=== PATIENT | female | born 1980 | race Two or more races ===

== ENCOUNTER 2022-07-27 12:01 | Emergency (ER) | payer MEDICAID, SELFPAY ==
[2022-07-27 12:57] VITALS: BP 143/88; PULSE 90; RESP 20; TEMP 36.4; O2SAT 98; BMI 36.4
--- NOTE | 2022-07-27 12:57 | ED.SKABFB ---
HPI - Skin/Abscess/Foreign Bdy General Chief complaint: Skin/Abscess/Foreign Body Stated complaint: rash on arm Time Seen by Provider: 07/27/22 12:57 Source: patient Mode of arrival: ambulatory Limitations: language barrier ([place]an-speaking pediatrician/medical doctor utilized) History of Present Illness HPI narrative: Patient is a 41-year-old female who presents emergency department for evaluation of rash to the bilateral arms. Onset of symptoms was 8 weeks ago. She reports that to be very itchy. She has been using Benadryl cream which has been somewhat helpful. Denies any history of similar rash in the past. Denies fevers or chills. Denies any others in her home having similar rashes. Rash is not present to the hands. Related Data Previous Rx's Medication Instructions Recorded hydrocortisone 2.5 % topical cream 1 appl topical BID PRN rash #30 07/27/22 grams Allergies Allergy/AdvReac Type Severity Reaction Status Date / Time No Known Allergies Allergy Verified 07/27/22 13:02 Review of Systems Review of Systems: Skin: Positive rash as noted in HPI Yes all other systems are reviewed and are negative [facility] Past Medical History Attestation statement: The following information was validated with the patient. Physical Exam Vital Signs: Appearance: Alert.?Oriented to person, place and time. No acute distress.?Normal affect. Eyes: Pupils equal, round and reactive to light.? ENT: Pharynx normal.?? Neck: Normal inspection.? Neck supple.?? CVS: Heart sounds normal. Normal heart rate and rhythm.? Pulses normal.?? Respiratory: No respiratory distress.? Lung sounds clear to auscultation bilaterally?? Abdomen: Soft and non-tender. ?? Skin: Skin warm and dry.? Normal skin color.? Maculopapular rash to the bilateral upper arms, no swelling, no erythema, no warmth Extremities: No lower extremity edema.? Neuro: Moves all extremities spontaneously. Sensation intact bilaterally. Ambulates with normal steady gait. Medical Decision Making Medical Decision Making [facility] Narrative: Patient is a 41-year-old female who presents emergency department for evaluation of a rash. No reported past medical history. Appears to be be benign self-limiting condition, vital signs are stable, nontoxic. Rash appears consistent with a contact dermatitis, discussed with patient etiology is unknown at this time. At consistent with cellulitis. No recent antibiotic usage, or new medications. Provided with prescription for hydrocortisone cream, advised outpatient follow-up with primary care provider as needed for persistent symptoms. Prescription Management I considered prescription management with: Other (Topical steroid) Discharge Plan Discharge Clinical Impression: Contact dermatitis Patient Disposition: Home, Self-Care Instructions: Contact Dermatitis (ED) Additional Instructions: Be sure to clean the area twice daily with warm water and non scented soap. Apply the steroid cream as prescribed twice daily. Follow-up with your primary care provider for persistent symptoms. Return to emergency department any new or worsening symptoms or concerns. Prescriptions: New hydrocortisone 2.5 % cream 1 appl topical BID PRN (Reason: rash) Qty: 30 0RF Print Language: [place]an
== END 2022-07-27 13:48 | disposition home or self-care (01) ==
LOC: HO.ED 13:45
PROVIDERS: Emergency Provider Emergency Medicine
DX: L23.9 Allergic contact dermatitis, unspecified cause (principal)
CPT/HCPCS: 99282; 99283

== ENCOUNTER 2022-08-14 18:58 | Emergency (ER) | payer OTHER, SELFPAY ==
--- NOTE | 2022-08-14 19:38 | ED.NECK ---
HPI - Neck Pain/Injury General Chief Complaint: General Medical <RAPHAEL Nails - Last Filed: 08/14/22 20:14> Stated Complaint: neck pain/ sore throat <RAPHAEL Nails - Last Filed: 08/14/22 20:14> Time Seen by Provider: 08/14/22 23:58 <RAPHAEL Nails - Last Filed: 08/14/22 20:14> Source: patient <Jennifer Thomas MD - Last Filed: 08/15/22 00:20> Mode of arrival: ambulatory <Jennifer Thomas MD - Last Filed: 08/15/22 00:20> Limitations: no limitations <Jennifer Thomas MD - Last Filed: 08/15/22 00:20> History of Present Illness HPI Narrative: Patient comes in the emergency room complaining of 1 day of sore throat, bilateral ear pain, runny nose and left sided neck pain . Patient denies fever or chills, no neck stiffness , no headache. <Jennifer Thomas MD - Last Filed: 08/15/22 00:20> Related Data Home Medications: Previous Rx's Medication Instructions Recorded hydrocortisone 2.5 % topical cream 1 appl topical BID PRN rash #30 07/27/22 grams <RAPHAEL Nails - Last Filed: 08/14/22 20:14> Allergies/Adverse Reactions: Allergies Allergy/AdvReac Type Severity Reaction Status Date / Time No Known Allergies Allergy Verified 07/27/22 13:02 <RAPHAEL Nails - Last Filed: 08/14/22 20:14> Review of Systems Review of Systems: Constitutional : No Weight loss, No Fever, No Chills, No Night Sweats, No Fatigue, No Malaise ENT/Mouth : Complaining of bilateral ear discomfort, runny nose Eyes: No Eye Pain, No Swelling, No Redness, No Foreign Body, No Discharge, No Vision Changes Cardiovascular : No Chest Pain, No SOB, No Dyspnea on Exertion, No Orthopnea, No Edema, No Palpitations Respiratory : No Cough, No Sputum, No Wheezing, No Smoke Exposure, No Dyspnea Gastrointestinal : No Nausea, No Vomiting, No Diarrhea, No Constipation, No abdominal Pain, No Hematochezia, No Melena Genitourinary : no irregular bleeding, No Dysuria, No Urinary Frequency, No Hematuria, No Urinary Incontinence, No Urgency, No Flank Pain, No Urinary Flow Changes, No Hesitancy Musculoskeletal : No joint pain, No Myalgias, No Joint Swelling Skin : No Skin Lesions, No rash Neuro : No Weakness, No Numbness, No Paresthesias, No Loss of Consciousness, No Dizziness, No Headache Psych : No Anxiety/Panic, No Depression, No SI/HI/AH/VH, No Social Issues, Heme/Lymph: No Bruising, No Bleeding,No Lymphadenopathy Endocrine : No Polyuria, No Polydipsia, No Temperature Intolerance <Jennifer Thomas MD - Last Filed: 08/15/22 00:20> [facility] Social History Social History: Social History Advance Directives: No Advance Directives Information Provided: No <RAPHAEL Nails - Last Filed: 08/14/22 20:14> Physical Exam Vital Signs: Vital Signs: Last Vital Signs Temp 98.6 F 08/14/22 23:55 Pulse 85 08/14/22 23:55 Resp 17 08/14/22 23:55 BP 123/79 08/14/22 23:55 Pulse Ox 100 08/14/22 23:55 O2 Del Method 08/14/22 23:55 BMI result Body Mass Index 33.5 <RAPHAEL Nails - Last Filed: 08/14/22 20:14> Vital Signs: Last Vital Signs Temp 98.6 F 08/14/22 23:55 Pulse 85 08/14/22 23:55 Resp 17 08/14/22 23:55 BP 123/79 08/14/22 23:55 Pulse Ox 100 08/14/22 23:55 O2 Del Method 08/14/22 23:55 BMI result Body Mass Index 33.5 <Jennifer Thomas MD - Last Filed: 08/15/22 00:20> Const: Other: Appearance: Alert. Oriented X3. No acute distress. Eyes: Pupils equal, round and reactive to light. ENT: Mildly erythematous oropharynx, no exudates, no abscesses Neck: Normal inspection. Neck supple. No lymph nodes noted. No crepitus, no malodor range of motion, no C-spine tenderness, normal flexion and extension, no stiffness, no pain with movement. CVS: Normal heart rate and rhythm. Pulses normal. Normal S1 and S2 Respiratory: No respiratory distress. Breath sounds normal. No Wheezing. No rales Abdomen: Soft and nontender. No rigidity. No distention. Skin: Skin warm and dry. Normal skin color. Normal skin turgor. Extremities: No lower extremity edema. No Lacerations. No Rash Neuro: Oriented X 3. No motor deficit. No sensory deficit. Moving all extremities. No slurred speech. CN 2 through 12 grossly intact Psych: calm, cooperative, normal affect <Jennifer Thomas MD - Last Filed: 08/15/22 00:20> Course Course Course Narrative: RME - 41 yo female presenting to the ER for evaluation of sore throat, bilateral ear pain, runny nose and left sided neck pain that started today. Reports pain with swallowing. No dental pain. No fever, chills, N/V/D, chest pain or trouble breathing. She reports left sided neck pain and spasm that she woke up with this morning. No headaches or neck stiffness. Afebrile and VSS in triage. Viral swab and strep test ordered. <RAPHAEL Nails - Last Filed: 08/14/22 20:14> RME - 41 yo female presenting to the ER for evaluation of sore throat, bilateral ear pain, runny nose and left sided neck pain that started today. Reports pain with swallowing. No dental pain. No fever, chills, N/V/D, chest pain or trouble breathing. She reports left sided neck pain and spasm that she woke up with this morning. No headaches or neck stiffness. Afebrile and VSS in triage. Viral swab and strep test ordered. <Jennifer Thomas MD - Last Filed: 08/15/22 00:20> Medical Decision Making Medical Decision Making [facility] Narrative: -patient tested negative for influenza, COVID, RSV, strep. Patient likely has viral pharyngitis. -patient was given 1 dose of p.o. dexamethasone and viscous lidocaine <Jennifer Thomas MD - Last Filed: 08/15/22 00:20> Differential Diagnosis Differential Diagnoses: The differential diagnosis associated with the presentation includes <Jennifer Thomas MD - Last Filed: 08/15/22 00:20> COVID, RSV, influenza, strep, viral pharyngitis <Jennifer Thomas MD - Last Filed: 08/15/22 00:20> Lab Data MDM Lab Attestation statement: I reviewed the patient's lab results. <Jennifer Thomas MD - Last Filed: 08/15/22 00:20> Labs: Lab Results 08/14/22 08/14/22 Range/Units 22:02 22:02 Influenza Type A (PCR) NEGATIVE (Negative) Influenza Type B (PCR) NEGATIVE (Negative) RSV RNA Qual (PCR) NEGATIVE (Negative) SARS-CoV-2 RNA (RT-PCR) NEGATIVE (Negative) S. pyogenes GrpA CHRISTOPHER Negative (Negative) <RAPHAEL Nails - Last Filed: 08/14/22 20:14> Lab Results 08/14/22 08/14/22 Range/Units 22:02 22:02 Influenza Type A (PCR) NEGATIVE (Negative) Influenza Type B (PCR) NEGATIVE (Negative) RSV RNA Qual (PCR) NEGATIVE (Negative) SARS-CoV-2 RNA (RT-PCR) NEGATIVE (Negative) S. pyogenes GrpA CHRISTOPHER Negative (Negative) <Jennifer Thomas MD - Last Filed: 08/15/22 00:20> Discharge Plan Discharge Clinical Impression: Acute viral pharyngitis <RAPHAEL Nails - Last Filed: 08/14/22 20:14> Patient Disposition: Home, Self-Care <RAPHAEL Nails - Last Filed: 08/14/22 20:14> Instructions: Pharyngitis (ED) <RAPHAEL Nails - Last Filed: 08/14/22 20:14> Additional Instructions: Please follow-up with your primary care physician tomorrow. If you have any worsening or new symptoms, please return to the emergency room or call 911 <RAPHAEL Nails - Last Filed: 08/14/22 20:14> Prescriptions: No Action hydrocortisone 2.5 % cream 1 appl topical BID PRN (Reason: rash) Qty: 30 0RF <RAPHAEL Nails - Last Filed: 08/14/22 20:14>
--- NOTE | 2022-08-14 19:46 | PC.NURSE ---
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
[2022-08-14 20:10] VITALS: BP 124/81; PULSE 89; RESP 16; TEMP 37; O2SAT 99; BMI 33.5
[2022-08-14 22:20] LABS: IDNOW Serial# 6674DD1D; Strep A Nucleic Acid Negative (Negative)
[2022-08-14 22:43] LABS: Influenza A PCR NEGATIVE (Negative); Influenza B PCR NEGATIVE (Negative); Resp Syncy Virus RNA Qual PCR NEGATIVE (Negative); SARS COV2 PCR INHOUSE NEGATIVE (Negative)
[2022-08-14 23:55] VITALS: BP 123/79; PULSE 85; RESP 17; TEMP 37; O2SAT 100
[2022-08-15] MEDS: dexAMETHasone sod phosphate 4 MG/ML VIAL 6 MG IVPUSH (00:28)
[2022-08-15] MEDS: Lidocaine HCl Viscous 2 % 15 ML SOLUTION MUCOUS MEM (00:28)
== END 2022-08-15 00:32 | disposition home or self-care (01) ==
PROVIDERS: Physician Assistant; Emergency Provider Emergency Medicine
DX: J02.8 Acute pharyngitis due to other specified organisms (principal); M54.2 Cervicalgia; H92.03 Otalgia, bilateral; Z20.822 Contact with and (suspected) exposure to COVID-19; Z20.828 Contact with and (suspected) exposure to other viral communicable diseases
CPT/HCPCS: 0241U; 87651; 99283; J1100